=== PATIENT | female | born 1945 | race African-American/Black ===

== ENCOUNTER 2018-03-24 17:23 | Emergency (ER) | payer OTHER ==
[~2018-03-24] VITALS: Ht 162.6 cm; Wt 39.9 kg
--- NOTE | ~2018-03-24 | EKG ---
[place] [address] [employer] [place] [place] [address] ELECTROCARDIOGRAM REPORT Name: ELIZABETH GUERRERO [id number] Admission: 03/24/18 Attend Phys: Discharge: 03/24/18 Date of : 47 Report #: [id number] THIS REPORT FOR: //name// [facility] ED Test Date: 2018-03-24 Test Time: 17:19:26 Pat Name: ELIZABETH GUERRERO Department: Room: Gender: F [employer]sembling Machine Operator: TRISTIAN : 1945 Requested By: David Newman Order Number: [id number] MD: Ortiz Best Measurements Intervals Baker Rate: 53 P: 81 CT: 131 QRS: 48 QRSD: 92 T: 209 QT: 486 QTc: 457 Interpretive Statements Sinus rhythm Probable left atrial enlargement RSR' in V1 or V2, probably normal variant Probable LVH with secondary repol abnrm Compared to ECG 08/02/2012 08:15:05 RSR' in V1 or V2 now present Sinus bradycardia no longer present Myocardial infarct finding no longer present T-wave abnormality still present Electronically Signed On 03-24-2018 22:57:02 CDT by Ortiz Best [email or web address] <ELECTRONICALLY SIGNED> By: Ortiz Best MD 03/24/18 [id number] Ortiz Best MD /EPI
[~2018-03-24 17:23] MED LIST: CARVEDILOL25 MG PO; CREON 10 CAPSUL1 CA1; CREON DR 24,001 EACH PO; CREON PO; FERRO-TIME325 MG PO; HYDROCODON-ACE1 EAC7 PO; LISINOPRIL40 MG PO; NICODERM CQ1 EAC1 TD; NORVASC10 MG PO; PANCREATIC ENZYME; POTASSIUM20 PO; ZENPEP DR 10,01 EACH PO
[2018-03-24] MEDS ORDERED: ZESTRIL10 MG PO (18:14)
[2018-03-24] MEDS ORDERED: NORVASC10 MG PO (18:14)
[2018-03-24 18:18] LABS: ABSOLUTE NEUTROPHILS 6.5 thou/uL (1.4-8.2); BASOPHILS 0.6 % (0.0-2.0); EOSINOPHILS 3.2 % (0.0-3.0); HEMATOCRIT 43.9 % (37.0-47.0); HEMOGLOBIN 14.2 gm/dL (12.0-15.0); LYMPHOCYTES 21.5 % (24.0-44.0); MCH 26.6 pg (26.0-34.0); MCHC 32.3 g/dL (28.0-37.0); MCV 82.3 fL (80.0-100.0); MONOCYTES 5.1 % (1.0-8.0); PLATELET COUNT 196 thou/uL (150-400); POLYS 69.6 % (36.0-66.0); RBC 5.33 mil/uL (4.20-5.00); RDW 15.2 % (10.5-14.5); WBC 9.3 thou/uL (4.0-11.0)
[2018-03-24 18:22] LABS: ANION GAP 9 mmol/L (7-16); BUN 18 mg/dL (7-18); CALCIUM 9.6 mg/dL (8.5-10.1); CHLORIDE 105 mmol/L (98-107); CO2 22 mmol/L (21-32); CREATININE 1.9 mg/dL (0.6-1.0); GLUCOSE 95 mg/dL (74-106); POTASSIUM 4.5 mmol/L (3.5-5.1); SODIUM 136 mmol/L (136-145)
[2018-03-24 18:31] LABS: TROPONIN-I < 0.04 ng/mL (<0.06)
[2018-03-24 19:01] LABS: URINE BILIRUBIN NEGATIVE (Negative); URINE BLOOD NEGATIVE (Negative); URINE CLARITY CLEAR; URINE COLOR YELLOW; URINE GLUCOSE-RANDOM* NEGATIVE (Negative); URINE KETONES NEGATIVE (Negative); URINE LEUKOCYTES-REFLEX 1+ (Negative); URINE NITRITE-REFLEX NEGATIVE (Negative); URINE PROTEIN (DIPSTICK) 1+ (Negative); URINE SPECIFIC GRAVITY 1.025 (1.005-1.035); URINE UROBILINOGEN 0.2 E.U./dl (0.2-1.0)
[2018-03-24 19:14] LABS: BACTERIA-REFLEX None Seen /HPF (None Seen); CRYSTALS None Seen /LPF (None Seen); FINE GRANULAR CASTS 4-10 Moderate /LPF (None Seen); MUCUS >6 Heavy strn/LPF (None Seen); SQUAMOUS >10 Many /LPF (0-3); URINE RBC 0-2 Rare /HPF (0-2)
[2018-03-24] MEDS ORDERED: KEFLEX500 M1 PO (19:30)
[2018-03-24] MEDS ORDERED: ZOFRAN ODT4 MG DISSOLVE (19:30)
== END 2018-03-24 19:47 | disposition home or self-care (01) ==
LOC: ER 17:23
PROVIDERS: Emergency Medicine
DX: N39.0 Urinary tract infection, site not specified (principal); R11.10 Vomiting, unspecified

== ENCOUNTER 2018-10-24 18:52 | Inpatient (IN) | payer OTHER ==
[~2018-10-24] VITALS: Ht 162.6 cm; Wt 39.5 kg
[~2018-10-24 18:52] MED LIST changes: +KEFLEX500 M1 PO; +ZESTRIL10 MG PO; +ZOFRAN ODT4 MG DISSOLVE
[2018-10-24 18:59] VITALS: BP 197/93
[2018-10-24 20:22] LABS: ABSOLUTE NEUTROPHILS 6.6 thou/uL (1.4-8.2); BASOPHILS 0.6 % (0.0-2.0); EOSINOPHILS 1.6 % (0.0-3.0); HEMATOCRIT 45.8 % (37.0-47.0); HEMOGLOBIN 14.9 gm/dL (12.0-15.0); MCH 25.9 pg (26.0-34.0); MCHC 32.6 g/dL (28.0-37.0); MCV 79.4 fL (80.0-100.0); MONOCYTES 5.1 % (1.0-8.0); PLATELET COUNT 255 thou/uL (150-400); POLYS 78.7 % (36.0-66.0); RBC 5.76 mil/uL (4.20-5.00); RDW 16.2 % (10.5-14.5); WBC 8.4 thou/uL (4.0-11.0)
[2018-10-24 20:36] LABS: CALCIUM 9.6 mg/dL (8.5-10.1); CREATININE 1.7 mg/dL (0.6-1.0); POTASSIUM 3.7 mmol/L (3.5-5.1)
[2018-10-24 20:41] LABS: ALBUMIN 3.4 g/dL (3.4-5.0); TOTAL BILIRUBIN 0.3 mg/dL (<0.1-1.0); TOTAL PROTEIN 7.1 g/dL (6.4-8.2)
[2018-10-24 22:02] VITALS: BP 140/69
[2018-10-24 22:45] VITALS: BP 181/93
[2018-10-24 23:30] VITALS: BP 148/86
[2018-10-25 01:06] LABS: CALCIUM 8.7 mg/dL (8.5-10.1); CREATININE 1.5 mg/dL (0.6-1.0); POTASSIUM 3.6 mmol/L (3.5-5.1)
[2018-10-25 01:15] LABS: TROPONIN-I 0.06 ng/mL (<0.06)
[2018-10-25 03:50] VITALS: BP 181/93
[2018-10-25 06:33] LABS: HEMATOCRIT 41.4 % (37.0-47.0); HEMOGLOBIN 13.1 gm/dL (12.0-15.0); MCH 25.2 pg (26.0-34.0); MCHC 31.7 g/dL (28.0-37.0); MCV 79.4 fL (80.0-100.0); RBC 5.21 mil/uL (4.20-5.00); RDW 16.5 % (10.5-14.5)
[2018-10-25 06:45] LABS: CALCIUM 8.9 mg/dL (8.5-10.1); CREATININE 1.4 mg/dL (0.6-1.0); POTASSIUM 3.2 mmol/L (3.5-5.1)
[2018-10-25 07:34] VITALS: BP 154/87
[2018-10-25] MEDS ORDERED: PERIDEX 0.12%473 M1 MUCOUS MEM (09:27)
[2018-10-25] MEDS ORDERED: NICOTINE TRANSD21 M1 TRANSDERM (09:29)
[2018-10-25 12:00] VITALS: BP 125/64
[2018-10-25 15:38] VITALS: BP 138/78
[2018-10-25 16:06] VITALS: BP 138/78
== END 2018-10-25 16:56 | disposition home or self-care (01) | DRG 157 ==
LOC: ER 18:52 → EROBS 21:31 → 3W 23:02
PROVIDERS: Nurse Practitioner Family; Physician Assistant
PROC: 0CBM8ZX Excision of Pharynx, Via Natural or Artificial Opening Endoscopic, Diagnostic (ICD-10-PCS; principal; 2018-10-25)
DX: K14.9 Disease of tongue, unspecified (principal); E43 Unspecified severe protein-calorie malnutrition; Q61.3 Polycystic kidney, unspecified; I10 Essential (primary) hypertension; F17.210 Nicotine dependence, cigarettes, uncomplicated; F32.9 Major depressive disorder, single episode, unspecified; Z88.6 Allergy status to analgesic agent; Z88.0 Allergy status to penicillin; Z79.899 Other long term (current) drug therapy
CPT/HCPCS: 10879